=== PATIENT | male | born 1995 | race Caucasian/White ===

== ENCOUNTER 2022-07-30 08:20 | Emergency (ER) | payer BC, SELFPAY ==
[2022-07-30 08:27] VITALS: BP 135/87; PULSE 113; RESP 18; TEMP 36.7; O2SAT 96; BMI 42.5
--- NOTE | 2022-07-30 08:38 | CRLHL7_ITS ---
For Patients: As a result of the Century Cures Act, medical imaging exams and procedure reports are released immediately into your electronic medical record. You may view this report before your referring provider. If you have questions, please contact your health care provider. INDICATION: UMBILICAL PAIN TECHNIQUE: CT abdomen and pelvis with 145 cc Isovue 370 IV contrast. COMPARISON: None. FINDINGS: The liver is normal in size, shape and attenuation. Gallbladder and biliary tree are normal. The spleen, adrenal glands and pancreas are within normal limits. The kidneys are unremarkable. No bowel obstruction or inflammation. Appendix not definitely visualized but there is no inflammation in the right lower quadrant. No significant free fluid and no free air. Small fat containing umbilical hernia with sagittal defect measuring 1.5 cm. There is associated and surrounding inflammation. No evidence of fluid collection. No bowel within the hernia. Pelvic organs are unremarkable. The lower chest is unremarkable. IMPRESSION: Small fat containing umbilical hernia with associated and surrounding inflammation. Recommend clinical correlation for signs and symptoms of incarceration or infection. No bowel is identified within the hernia. Please note that all CT scans at this facility use dose modulation, iterative reconstruction, and/or weight-based dosing when appropriate to reduce radiation dose to as low as reasonably achievable. Dictated by Mat Diaz MD @ 07/30/2022 9:48:54 AM (Electronically Signed)
--- NOTE | 2022-07-30 08:49 | ED.GENADULT ---
HPI - General Adult General Date Seen: 07/30/22 Chief complaint: Skin/Abscess/Foreign Body Stated complaint: Bleeding from belly button Time Seen by Provider: 07/30/22 08:28 Source: patient Mode of arrival: ambulatory Limitations: no limitations History of Present Illness HPI narrative: Patient is a 26-year-old gentleman who presents here with bleeding from his umbilicus, this started yesterday, worsened today, he thought he might have a hernia content times he had some discomfort around his umbilicus, he has no bulge, redness fevers chills or sweats, he stuck his finger in there, and set afterwards it was bleeding, he did not stick any other foreign body in there. Denies any problems with nausea vomiting or other abdominal pain. No problems with bowel movements, has never had this problem previously, denies any dysuria frequency. No history of any bleeding tendencies, took some Tylenol yesterday but is on no other chronic medications. Does have a history of her previous appendectomy but this was done open style. No other history of bleeding tendencies, Related Data Previous Rx's Medication Instructions Recorded amoxicillin 875 mg-potassium 1 tab PO BID #20 tabs 07/30/22 clavulanate 125 mg tablet Allergies Allergy/AdvReac Type Severity Reaction Status Date / Time No Known Drug Allergies Allergy Verified 07/30/22 08:27 Review of Systems Status of ROS: Reports: 10 or more systems reviewed and unremarkable except as noted in History and below [facility] Surgical History (Updated 07/30/22 @ 11:00 by Fred Conway MD) H/O shoulder surgery S/P appendectomy Social History Smoking Status: Never smoker Do you use any of these nicotine containing products: None Second hand tobacco smoke exposure: No How often do you have a drink containing alcohol: monthly or less How many standard drinks containing alcohol do you have on a typical day: 1 or 2 How often do you have six or more drinks on one occasion: Less than monthly AUDIT-C Alcohol total score: 2 Non-prescribed substance use: denies use service: No Exam Narrative: Exam Narrative: On examination patient is seen in room 6, he is in no apparent distress speaking to me normally, his abdomen is soft, there is no evidence of any tenderness. On palpation he has blood the that pool slowly from his umbilicus appears to be venous in nature. I am not able to see exactly where the bleeding occurs from. Bowel sounds are normal there is no organomegaly, normal male genitalia, no other evidence of stigmata. After reviewing with Dr. Andersen, he is worried about her hernia and he does not have history of a bulge. I discussed with him we will do a CT scan, with IV contrast, and also laboratory work, we will use some let in the area. Const: Vital Signs, click to edit/add: Vital Signs - 24 hr 07/30/22 08:27 07/30/22 09:50 Temperature 98.1 F 97.1 F L Pulse Rate [Pulse Oximeter] 113 H 102 H Respiratory Rate 18 20 Blood Pressure [Le ft Upper Arm] 135/87 124/73 Pulse Oximetry 96 99 Oxygen Delivery Me thod Room Air Room Air Documenting provider has reviewed patient's vital signs: yes Course Course Hospital Course: Patient is seen Dr. Reed our general surgeon, she feels that he just has a little irritation possible slight abscess, she would recommend antibiotics, and then follow up if issues, she would not recommend repair of this area. Given his size of his abdomen, she says this will cause further issues. Discussed with the patient he was comfortable with this. Consultations Consultation #1: I consult to General surgery Dr. Reed she will come over and see the patient. Time: 09:46 Vital Signs Vital signs: Initial Vital Signs Temperature 98.1 F 07/30/22 08:27 Temperature Source Temporal Artery Scan 07/30/22 08:27 Pulse Rate 113 H 07/30/22 08:27 Pulse Rhythm 07/30/22 08:27 Respiratory Rate 18 07/30/22 08:27 Blood Pressure 135/87 07/30/22 08:27 Blood Pressure Mean 103 07/30/22 08:27 Blood Pressure Position Supine 07/30/22 08:27 Pulse Oximetry 96 07/30/22 08:27 Oxygen Delivery Method 07/30/22 08:27 Vital Signs Temperature 98.1 F 07/30/22 08:27 Pulse Rate 113 H 07/30/22 08:27 Respiratory Rate 18 07/30/22 08:27 Blood Pressure 135/87 07/30/22 08:27 Pulse Oximetry 96 07/30/22 08:27 Oxygen Delivery Method 07/30/22 08:27 Temperature 97.1 F L 07/30/22 09:50 Pulse Rate 102 H 07/30/22 09:50 Respiratory Rate 20 07/30/22 09:50 Blood Pressure 124/73 07/30/22 09:50 Pulse Oximetry 99 07/30/22 09:50 Oxygen Delivery Method 07/30/22 09:50 Medical Decision Making MDM Narrative Medical decision making narrative: During this evaluation of this patient I considered multiple differential diagnosis is which included the life-threatening such as appendicitis, aortic aneurysm, mesenteric ischemia, bowel perforation, volvulus, and bowel obstruction. Other differential diagnosis is include but are not limited to cholecystitis, pancreatitis, hepatitis, gastritis, GERD, diverticulitis, peptic ulcer disease, pyelonephritis/UTI, renal colic/stone, testicular torsion as well as other acute scrotal processes, inflammatory bowel disease, as well as other etiologies Lab Data Lab results reviewed: Yes I reviewed the patient's lab results Labs: Lab Results 07/30/22 07/30/22 Range/Units 08:50 08:50 WBC 11.06 H (4.50-11.00) K/uL RBC 5.35 (4.30-5.90) m/uL Hgb 15.4 (13.5-17.5) gm/dL Hct 46.0 (37.0-53.0) % MCV 86 (80-100) fL MCH 29 (26-34) pg MCHC 34 (32-36) gm/dL RDW Coeff of Arron 12.8 (11.5-15.5) % Plt Count 241 (140-440) K/uL Neut % (Auto) 79.3 H (42.0-72.0) % Lymph % (Auto) 10.9 L (20-44) % [place] % (Auto) 8.1 (0.0-11.0) % Eos % (Auto) 1.2 (0.0-7.0) % Baso % (Auto) 0.3 (0.0-3.0) % Neut # (Auto) 8.80 H (1.7-7.0) K/uL Lymph # (Auto) 1.20 (0.90-2.90) K/uL [place] # (Auto) 0.90 (0.00-0.90) K/UL Eos # (Auto) 0.10 (0.00-0.50) K/uL Baso # (Auto) 0.00 (0.00-0.30) K/uL Sodium 137 (135-149) mmol/L Potassium 4.0 (3.6-5.1) mmol/L Chloride 103 (96-114) mmol/L Carbon Dioxide 26 (20-32) mmol/L BUN 11 (5-24) mg/dL Creatinine 0.6 (0.5-1.5) mg/dL Estimated Creat Clear 192.64 Estimated GFR 137 ml/min Glucose 107 (60-115) mg/dL Calcium 9.4 (8.4-10.6) mg/dL Imaging Data CT scan - abdomen: Attestation: I have reviewed the pertinent imaging results. My impression: Small fat containing hernia no evidence of acute bowel obstruction Radiologist's impression: Patient: YAMILE VIERA Facility:?[facility] Patient ID:?[id number] Site Patient ID:?[id number]. Site :?[id number] Study:?CT Abdomen/Pelvis 145CC ISOVUE 370-07/30/2022 9:19:04 AM Ordering Physician:Wesley Lema Final Report: INDICATION: UMBILICAL PAIN TECHNIQUE: CT abdomen and pelvis with 145 cc Isovue 370 IV contrast. COMPARISON: None. FINDINGS: The liver is normal in size, shape and attenuation. Gallbladder and biliary tree are normal. The spleen, adrenal glands and pancreas are within normal limits. The kidneys are unremarkable. No bowel obstruction or inflammation. Appendix not definitely visualized but there is no inflammation in the right lower quadrant. No significant free fluid and no free air. Small fat containing umbilical hernia with sagittal defect measuring 1.5 cm. There is associated and surrounding inflammation. No evidence of fluid collection. No bowel within the hernia. Pelvic organs are unremarkable. The lower chest is unremarkable. IMPRESSION: Small fat containing umbilical hernia with associated and surrounding inflammation. Recommend clinical correlation for signs and symptoms of incarceration or infection. No bowel is identified within the hernia. Please note that all CT scans at this facility use dose modulation, iterative reconstruction, and/or weight-based dosing when appropriate to reduce radiation dose to as low as reasonably achievable. Dictated by Mat Diaz MD @ 07/30/2022 9:48:54 AM (Electronic Signature) Discharge Plan Discharge Clinical Impression: Abscess of skin or subcutaneous tissue, Umbilical pain, Cellulitis, Hernia, umbilical Patient Disposition: Home, Self-Care Condition: Stable Instructions: Cellulitis (ED), Umbilical Hernia (ED), Abscess (ED) Additional Instructions: Home rest use of medications as directed, Tylenol for the discomfort, nothing sticking in your belly button, take the medications fully return here if increasing fevers chills nausea vomiting or other issues. Prescriptions: New amoxicillin-pot clavulanate 875-125 mg tablet 1 tab PO BID Qty: 20 0RF Follow Up/Referrals: Akosua Saravia MD [Primary Care Provider] - Stand Alone Forms: [employer] Info Instructions
[2022-07-30] MEDS: 0.9 % SODIUM CHLORIDE 1000 ml 1,000 ML IV (08:55)
[2022-07-30 09:02] LABS: Basophils Percent Auto 0.3 % (0.0-3.0); Eosinophils Percent Auto 1.2 % (0.0-7.0); Hemoglobin* 15.4 gm/dL (13.5-17.5); Immature Granulocytes Pct Auto 0.2 %; Lymphocytes Percent Auto 10.9 % (20-44); Mean Corpuscular HGB Conc 34 gm/dL (32-36); Mean Corpuscular Hemoglobin 29 pg (26-34); Mean Corpuscular Volume 86 fL (80-100); Monocytes Percent Auto 8.1 % (0.0-11.0); Neutrophils Percent Auto 79.3 % (42.0-72.0); Platelet Count* 241 K/uL (140-440); RDW Coefficient of Variation % 12.8 % (11.5-15.5); Red Blood Count 5.35 m/uL (4.30-5.90); White Blood Count* 11.06 K/uL (4.50-11.00)
[2022-07-30 09:06] LABS: Slide Review Reflex No
[2022-07-30 09:13] LABS: Chloride* 103 mmol/L (96-114); Sodium* 137 mmol/L (135-149)
[2022-07-30 09:15] LABS: Creatinine* 0.6 mg/dL (0.5-1.5); Est. Creatinine Clearance* 192.64; Estimated Glomerular Filt Rate 137 ml/min
[2022-07-30 09:16] LABS: Blood Urea Nitrogen* 11 mg/dL (5-24); Calcium* 9.4 mg/dL (8.4-10.6); Carbon Dioxide* 26 mmol/L (20-32); Glucose* 107 mg/dL (60-115)
--- NOTE | 2022-07-30 09:37 | ED.NURSE ---
bleeding from umbilicus has stopped.
[2022-07-30 09:50] VITALS: BP 124/73; PULSE 102; RESP 20; TEMP 36.2; O2SAT 99
--- NOTE | 2022-07-30 10:57 | P.GSCN_ITS ---
History of Present Illness Consult details Date Seen: 07/30/22 Consult date: 07/30/22 Narrative: 26-year-old male presented to emergency room with bleeding from his umbilicus and I was asked by Dr. Long to see him in consultation. Patient states that a couple days ago he noticed pain in his umbilicus. The pain was making it difficult to sleep and difficult to sit up. And then today when he woke up in the morning he noticed redness around his umbilicus. He also noticed bleeding from his belly button. This was concerning to the patient and he presented to the emergency room. Patient was otherwise doing well. He was tolerating regular diet and passing gas. I reviewed his labs and his CT scan. His WBC is minimally elevated at 11. The rest of his blood work is normal. An abdominal CT was obtained that showed a small umbilical hernia with inflammation around the umbilicus but no evidence of incarcerated bowel and no evidence of an abscess. Review of Systems Narrative: General: no fevers HENT: no problems swallowing CV: no shortness of breath Resp: no cough GI: See above : no dysuria, no increased urinary frequency, no hematuria Skin: See above Musculoskeletal: no back pain Neuro: no muscle weakness Psyche: no depression, no anxiety PFSH PFSH Surgical History (Updated 07/30/22 @ 11:00 by Fred Conway MD) H/O shoulder surgery S/P appendectomy Social History Smoking Status: Never smoker Do you use any of these nicotine containing products: None Second hand tobacco smoke exposure: No How often do you have a drink containing alcohol: monthly or less How many standard drinks containing alcohol do you have on a typical day: 1 or 2 How often do you have six or more drinks on one occasion: Less than monthly AUDIT-C Alcohol total score: 2 Non-prescribed substance use: denies use service: No Meds Home Medications and Allergies Allergies Allergy/AdvReac Type Severity Reaction Status Date / Time No Known Drug Allergies Allergy Verified 07/30/22 08:27 Exam Narrative: Exam Narrative: General appearance: Alert, cooperative, and in no distress Pulmonary: Chest symmetric, lungs clear bilaterally Cardiovascular Heart: Regular rate and rhythm, S1, S2, no murmurs/rubs/gallops Gastrointestinal Abdominal: soft, obese, not distended, not tender to palpation in the lateral abdomen. There is faint erythema surrounding the umbilicus. At the bottom of the umbilicus I am able to see slightly edematous skin with no skin opening visualized. Small amount of bloody purulent like fluid was seen on the gauze. Patient has tenderness with palpation of his umbilicus. A new dry gauze was placed into the umbilicus and taped in place. Skin: Normal skin color, texture, and turgor. Psychiatric: Alert, cooperative, normal affect. Const: Vital Signs, click to edit/add: Vital Signs - 24 hr 07/30/22 08:27 07/30/22 09:50 Temperature 98.1 F 97.1 F L Pulse Rate [Pulse Oximeter] 113 H 102 H Respiratory Rate 18 20 Blood Pressure [Le ft Upper Arm] 135/87 124/73 Pulse Oximetry 96 99 Oxygen Delivery Me thod Room Air Room Air Results Labs Labs: Abnormal lab results 07/30/22 Range/Units 08:50 WBC 11.06 H (4.50-11.00) K/uL Neut % (Auto) 79.3 H (42.0-72.0) % Lymph % (Auto) 10.9 L (20-44) % Neut # (Auto) 8.80 H (1.7-7.0) K/uL Diabetes panel 07/30/22 Range/Units 08:50 Sodium 137 (135-149) mmol/L Potassium 4.0 (3.6-5.1) mmol/L Chloride 103 (96-114) mmol/L Carbon Dioxide 26 (20-32) mmol/L BUN 11 (5-24) mg/dL Creatinine 0.6 (0.5-1.5) mg/dL Glucose 107 (60-115) mg/dL Calcium 9.4 (8.4-10.6) mg/dL Calcium panel 07/30/22 Range/Units 08:50 Calcium 9.4 (8.4-10.6) mg/dL Pituitary panel 07/30/22 Range/Units 08:50 Sodium 137 (135-149) mmol/L Potassium 4.0 (3.6-5.1) mmol/L Chloride 103 (96-114) mmol/L Carbon Dioxide 26 (20-32) mmol/L BUN 11 (5-24) mg/dL Creatinine 0.6 (0.5-1.5) mg/dL Glucose 107 (60-115) mg/dL Calcium 9.4 (8.4-10.6) mg/dL Adrenal panel 07/30/22 Range/Units 08:50 Sodium 137 (135-149) mmol/L Potassium 4.0 (3.6-5.1) mmol/L Chloride 103 (96-114) mmol/L Carbon Dioxide 26 (20-32) mmol/L BUN 11 (5-24) mg/dL Creatinine 0.6 (0.5-1.5) mg/dL Glucose 107 (60-115) mg/dL Calcium 9.4 (8.4-10.6) mg/dL All other labs normal. Assessment and Plan Assessment and plan (1) Umbilical pain: Status: Acute Plan 36-year-old male presents with bleeding from umbilicus that could be related to a small infected skin cyst or trauma. I discussed with the patient his laboratory and CT findings. On CT patient has a tiny umbilical hernia that has not been bothering the patient and is probably not the cause of his symptoms. Patient first developed pain and I suspect that he could have had a small skin cyst at the bottom of his umbilicus that got inflamed and infected. The bleeding could be due to drainage of the cyst or trauma with patient trying to push inside of his umbilicus. Patient does have faint cellulitis surrounding the umbilicus and inflammation on the CT scan. I asked the patient to keep the gauze in place until tonight when he is taking a shower. He should avoid swimming for 2 weeks[address] We will also place him on anti biotics to treat the infection surrounding his umbilicus. I did not recommend considering umbilical hernia repair given his BMI, the size of his umbilical hernia defect, and the fact that he had no previous pain that with be suggestive of symptomatic hernia.
== END 2022-07-30 11:26 | disposition home or self-care (01) ==
PROVIDERS: Emergency Provider Family Medicine; PCP Pediatrics
DX: L02.211 Cutaneous abscess of abdominal wall (principal); R10.33 Periumbilical pain; K42.9 Umbilical hernia without obstruction or gangrene
CPT/HCPCS: 36415; 74177; 80048; 85025; 99284; J7030; Q9967